=== PATIENT | female | born 2000 | race Caucasian/White ===

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

== ENCOUNTER 2022-03-21 11:07 | Emergency (ER) | payer BC ==
[2022-03-21] MEDS ORDERED: Ketorolac 30 MG/ML SDV IM ONE (11:24)
== END 2022-03-21 11:52 | disposition home or self-care (01) ==
LOC: MW.ED 11:07
DX: S13.4XXA Sprain of ligaments of cervical spine, initial encounter (principal); S09.90XA Unspecified injury of head, initial encounter; Z88.0 Allergy status to penicillin; Z86.16 Personal history of COVID-19; V80.010A Animal-rider injured by fall from or being thrown from horse in noncollision accident, initial encounter; Y93.52 Activity, horseback riding
CPT/HCPCS: 96372; 99283; J1885

== ENCOUNTER 2022-05-13 10:21 | Emergency (ER) | payer BC ==
[2022-05-13] MEDS ORDERED: Ketorolac 30 MG/ML SDV IVPUSH ONE (10:57)
[2022-05-13] MEDS ORDERED: Sodium Chloride 0.9% 1,000 ML IV ONE (10:57)
[2022-05-13] MEDS ORDERED: Ondansetron 4 MG/2 ML SDV IVPUSH ONE (10:57)
[2022-05-13 12:21] LABS: CARBON DIOXIDE,CO2 21.4 mmol/L (21.0-32.0); POTASSIUM,K 3.7 mmol/L (3.5-5.1)
[2022-05-13 12:57] LABS: C. TRACHOMATIS BY PCR NOT DETECTED; N. GONORRHOEAE BY PCR NOT DETECTED
[2022-05-13] MEDS ORDERED: Iopamidol 755 MG/ML 500 ML Multipack Bottle IVPUSH STA (12:58)
[2022-05-13] MEDS ORDERED: Dicyclomine 10 MG Cap PO ONE (14:25)
== END 2022-05-13 15:01 | disposition home or self-care (01) ==
LOC: MW.ED 10:21
DX: K52.9 Noninfective gastroenteritis and colitis, unspecified (principal); Z88.0 Allergy status to penicillin
CPT/HCPCS: 36415; 74177; 80053; 81001; 81025; 83690; 85025; 87480; 87491; 87510; 87591; 87660; 96374; 96375; 99284; A9270; J1885; J2405; J7030; Q9967; 99285

== ENCOUNTER 2023-05-11 15:28 | Emergency (ER) | payer BC | END 2023-05-11 17:18 | disposition home or self-care (01) | LOC: MW.ED 15:28 | DX: S09.93XA Unspecified injury of face, initial encounter (principal); Z88.0 Allergy status to penicillin; Z79.899 Other long term (current) drug therapy; W22.8XXA Striking against or struck by other objects, initial encounter | CPT/HCPCS: 70450; 70450-26; 70486; 70486-26; 99283 ==

== ENCOUNTER 2024-10-23 23:35 | Inpatient (IN) | payer BC ==
[2024-10-24] MEDS ORDERED: Lidocaine 1% 50 ML MDV INJECT PRN (01:03)
[2024-10-24] MEDS ORDERED: Sodium Chloride 0.9% 20 ML SDV IV PRN (01:03)
[2024-10-24] MEDS ORDERED: Sodium Chloride 0.9% 10 ML Syringe FLUSH PRN (01:03)
[2024-10-24] MEDS ORDERED: Misoprostol 200 MCG Tab PO PRN (01:03)
[2024-10-24] MEDS ORDERED: Carboprost Tromethamine 250 MCG/1 mL Vial IM PRN (01:03)
[2024-10-24] MEDS ORDERED: Tranexamic Acid in NACL,ISO-OS 1,000 MG in Premix Bag 1 BAG IV PRN (01:03)
[2024-10-24] MEDS ORDERED: Sodium Chloride 0.9% 2.5 ML Syringe FLUSH PRN (01:03)
[2024-10-24] MEDS ORDERED: Methylergonovine 0.2 MG/1 ML Amp IM PRN (01:03)
[2024-10-24] MEDS ORDERED: Water For Irrigation,Sterile 1,000 ML Container IRR PRN (01:03)
[2024-10-24] MEDS ORDERED: Oxytocin/0.9 % Sodium Chloride 30 UNIT/500 ML BAG IV SCH (01:15)
[2024-10-24] MEDS: Lactated Ringers 1,000 ML IV SCH (01:46)
[2024-10-24] MEDS: VANCOmycin 1.5 GM in Sodium Chloride 0.9% 250 ML IV SCH (01:59)
[2024-10-24 02:03] LABS: HEMOGLOBIN 12.5 g/dL (12.0-16.0); MEAN CORPUSCULAR HEMOGLOBIN 28.7 pg (28.0-32.0); MEAN CORPUSCULAR HGB CONC 34.7 g/dL (32.0-36.0); MEAN CORPUSCULAR VOLUME 82.6 fL (83.0-99.0); PLATELET COUNT,PLT 288 K/uL (150-400); RED BLOOD CELL COUNT 4.36 M/uL (4.10-5.30); WHITE BLOOD CELL COUNT,WBC 14.88 K/uL (3.9-11.3)
[2024-10-24] MEDS: Butorphanol 2 MG/ML SDV IVPUSH PRN (02:36)
[2024-10-24] MEDS ORDERED: dexmedeTOMIDine HCl 200 MCG/2 ML SDV ONE (03:26)
[2024-10-24] MEDS ORDERED: Phenylephrine HCl In 0.9% NaCl 1 MG/10 ML Syringe ONE (03:27)
[2024-10-24] MEDS: Ropivacaine HCl/PF 200 ML ONE (03:28)
[2024-10-24] MEDS: Ropivacaine HCl/PF 400 MG in Premix Bag 1 BAG EPIDUR SCH (03:28)
[2024-10-24] MEDS: Ondansetron 4 MG/2 ML SDV ONE (03:35)
[2024-10-24] MEDS ORDERED: Phenylephrine HCl In 0.9% NaCl 1 MG/10 ML Syringe IVPUSH PRN (03:44)
[2024-10-24] MEDS ORDERED: ePHEDrine 50 MG/ML SDV IVPUSH PRN (03:44)
[2024-10-24] MEDS ORDERED: dexmedeTOMIDine HCl 200 MCG/2 ML SDV EPIDUR SCH (03:45)
[2024-10-24] MEDS: Ondansetron 4 MG/2 ML SDV IVPUSH PRN (08:11)
[2024-10-24] MEDS ORDERED: Terbutaline 1 MG/ML SDV SUBCUT PRN (11:27)
[2024-10-24] MEDS: Oxytocin/0.9 % Sodium Chloride 30 UNIT/500 ML BAG IV SCH (11:37)
[2024-10-24] MEDS ORDERED: oxyCODONE 5 MG Tab PO PRN (13:48)
[2024-10-24 15:31] LABS: PH,UMBILICAL ARTERIAL 7.202 (7.18-7.38); PH,UMBILICAL VENOUS 7.234 (7.25-7.45)
[2024-10-24] MEDS: Ibuprofen 800 MG Tab PO PRN (15:49)
[2024-10-24] MEDS: Benzocaine/Menthol 20%-0.5% Spray 78 GM Cannister TOP PRN (16:15)
[2024-10-24] MEDS: Witch Hazel Medicated Pads 40/Jar TOP PRN (16:15)
[2024-10-24] MEDS: Docusate Sodium 100 MG Cap PO PRN (17:21)
[2024-10-24] MEDS: Acetaminophen 500 MG Tab PO PRN (21:01)
[2024-10-24] MEDS: Lanolin 100% Cream 7 GM Tube TOP PRN (21:02)
[2024-10-25 06:02] LABS: HEMATOCRIT 27.8 % (37.0-47.0); HEMOGLOBIN 9.5 g/dL (12.0-16.0)
== END 2024-10-26 23:53 | disposition home or self-care (01) | DRG 560 ==
LOC: MW.OBCHECK 23:35 → MW.OB 23:35 → MW.OBCHECK 10-24 01:03 → MW.OB 10-24 01:03 → OBSVTOIN 10-24 13:26 → MW.OB 10-24 19:45
PROVIDERS: ADMIT Obstetrics & Gynecology; ATTEND Obstetrics & Gynecology
PROC: 10E0XZZ Delivery of Products of Conception, External Approach (ICD-10-PCS; principal; 2024-10-24)
PROC: 0HQ9XZZ Repair Perineum Skin, External Approach (ICD-10-PCS; 2024-10-24)
DX: O99.824 Streptococcus B carrier state complicating childbirth (principal); O70.0 First degree perineal laceration during delivery; Z3A.40 40 weeks gestation of pregnancy; Z37.0 Single live birth
CPT/HCPCS: 01967; 36415; 51702; 59025; 59409; 82803; 84112; 85014; 85018; 85027; 86592; 86850; 86900; 86901; A9270-GY; J0595; J2371; J2405; J2590; J2795; J3371; J7050; J7120